=== PATIENT | female | born 1955 | race Caucasian/White ===

== ENCOUNTER → 2024-12-14 | Outpatient (CLI) | payer OTHER ==
[~2024-12-14] MED LIST: ALBU90OI INH; CHOL10002 PO; FEXPSEER PO; FLONASE; HYDACE5 PO; IBUP800 PO; META800 PO; NAPR500 PO; TIOT18 INH
[2024-12-16 20:53] LABS: HSV 1 SUBTYPE BY PCR Not Detected; HSV 2 SUBTYPE BY PCR Not Detected; HSV SUBTYPE SOURCE RIGHT NARE
== END ==
LOC: LAB 11:39 → LAB SHORT 11:39
PROVIDERS: Physician Assistant
DX: J34.89 Other specified disorders of nose and nasal sinuses (principal)
CPT/HCPCS: 87070; 87077; 87147; 87186; 87205; 87529